=== PATIENT | male | born 1990 | race Caucasian/White ===

== ENCOUNTER → 2016-04-08 | Outpatient (CLI) | payer MEDICAID ==
[~2016-04-08] MED LIST: IOPAMIDOL (ISOVUE 370) 100 ML BTL IV ONE
--- NOTE | 2016-04-08 13:03 | CT ---
CT Angiography of the Brain Clinical Indications: History of sagittal sinus thrombosis. Follow up. R29.818 Neurological changes s trongly suggesting intracerebral aneurysm. Technique: CT angiogram of the brain was performed with the uneventful intravenous administration of 90 mL Isovue-370 contrast. Multiplanar reconstructions including 3D reconstructions performed and ev aluated on [employer] workstation in order to better evaluate the [place] vessels. Images were m anipulated by the radiologist at the computer workstation. Dose reduction techniques were utilized. Comparison: CT angiogram head dated October 11, 2015. Findings: The intracranial venous system is well opacified and widely patent. No residual clot, sten osis, or web. The anterior and posterior arterial circulation are widely patent and normal. No filling defect, aneu rysm, or vascular malformation. The right posterior communicating artery is dominant and provides dwayne clint inflowing blood to the right posterior cerebral artery. The left posterior communicating artery is hypoplastic. A left frontal ventriculostomy shunt catheter crosses the midline and courses through the genu of the corpus callosum with the tip in the right frontal horn and lateral ventricle. The right lateral vent ricle is decompressed and the septum is shifted to the right 3 to 4 mm. The third and fourth ventricl es are normal in caliber. Shunt tubing is intact. No bleed or swelling along the course of the maureen ter in the left frontal lobe. No subdural hematoma or extra-axial fluid collection. Tran-white interfaces are normal. Benign retention cysts are present in bilateral maxillary sinuses. No layering fluid. Minimal mucosal thickening is present in the ethmoid air cells. Impression: 1. Widely patent intracranial venous system. No residual sagittal sinus thrombosis or stricture. 2. Left frontal ventriculostomy shunt tube, with tip in right frontal horn, decompresses the intraven tricular system. 3. No subdural hematoma or acute intracranial process.
== END ==
LOC: FIMAGING 10:44
PROVIDERS: ATTEND Psychiatry & Neurology Neurology
DX: Z86.79 Personal history of other diseases of the circulatory system (principal)
CPT/HCPCS: Q9967

== ENCOUNTER → 2016-04-27 | Outpatient (CLI) | payer MEDICAID | LOC: BMCIMAGING 11:07 | PROVIDERS: ATTEND Internal Medicine | DX: M25.561 Pain in right knee (principal) ==

== ENCOUNTER 2016-05-07 14:41 | Emergency (ER) | payer MEDICAID ==
--- NOTE | 2016-05-07 15:20 | EDPHY ---
H & P Time Seen by Provider: 05/07/16 14:56 HPI/ROS: Chief complaint. Low blood pressure, INR check HPI. 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 He was in the ICU for a prolonged period of time. He has been on seizure medication as well as warfarin since that time. The patient had a repeat head CT with IV contrast on 04/08/2016 which showed patent intracranial venous system without any evidence of residual thrombosis. Yesterday the speech therapist who is visiting said that the patient's blood pressure was low. The patient has no symptoms including headache, visual change, mentation change per mom, chest discomfort or trouble breathing or abdominal pain no fever. His only complaint is pain in his right knee that started with physical therapy several weeks ago. He had a normal x- ray of his right knee on April 27. The mom and patient are here today for evaluation of low blood pressure and to have the INR checked. Last INR check was 2 weeks ago and was found to be 2.1 ROS Constitutional. Low blood pressure Eyes. no problems with vision ENT. no sore throat, no nasal drainage Cardiovascular. no chest pain Respiratory. no shortness of breath, no cough Abdominal. no abdominal pain, no nausea/vomiting, no diarrhea . no problems urinating MS. Right knee pain Skin. no rash Lymph. no swollen glands Neuro. 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 ENT, Mouth: Mucous membranes are moist. Respiratory: There are no retractions, lungs are clear to auscultation. Cardiovascular: Regular rate and rhythm. Gastrointestinal: Abdomen is soft and nontender, no masses, bowel sounds normal. Neurological: Awake and alert, sensory and motor exams grossly normal. Skin: Warm and dry, no rashes. Musculoskeletal: Neck is supple nontender. Extremities symmetrical, full range of motion. Psychiatric: Patient is oriented X 3, there is no agitation. Constitutional: Initial Vital Signs Temperature (C) 36.4 C 05/07/16 14:41 Heart Rate 62 05/07/16 14:41 Respiratory Rate 16 05/07/16 14:41 Blood Pressure 114/82 H 05/07/16 14:41 O2 Sat (%) 97 05/07/16 14:41 O2 Delivery Mode Room Air Allergies/Adverse Reactions: No Known Allergies Allergy (Verified 09/17/15 15:30) Home Medications: Medication Instructions Recorded ARIPiprazole [Abilify 5 mg (*)] 05/07/16 Amlodipine Besylate 05/07/16 Metoprolol Succinate 05/07/16 Sertraline HCl 05/07/16 VIMPAT 05/07/16 Warfarin Sodium [Coumadin] 05/07/16 Medical Decision Making - Diagnostics EKG Interpretation: EKG interpreted by me shows sinus bradycardia with normal interval and axis. QRS is normal there is no significant ST elevation or depression. No arrhythmia. Ventricular response is 48 Procedures: IV normal saline. 1 L of saline given ED Course/Re-evaluation: On re-evaluation patient is stable. Serial blood pressures have been performed in all are approximately 110/63. No significant hyper bow tension has been noted. The patient, his mother, and I discussed treatment plan including criteria for return and importance of follow-up and further evaluation. They expressed understanding and agreement Differential Diagnosis: Concern for non therapeutic Coumadin level as the patient has recently been treated for sagittal sinus thrombosis. The INR is on the low end but is therapeutic. He had a recent head CT which showed resolution of the thrombosis. I am not finding any reason for hypotension. The patient however does take amlodipine and metoprolol which certainly may be contributing to the low end of blood pressure and some contributing to sinus bradycardia - Data Points Laboratory Results: Laboratory Results 05/07/16 16:40 05/07/16 16:40 05/07/16 05/07/16 05/07/16 16:40 16:40 15:20 WBC 7.92 10^3/uL 10^3/uL (3.80-9.50) RBC 5.60 10^6/uL 10^6/uL (4.40-6.38) Hgb 14.9 g/dL g/dL (13.7-17.5) Hct 44.8 % % (40.0-51.0) MCV 80.0 fL L fL (81.5-99.8) MCH 26.6 pg L pg (27.9-34.1) MCHC 33.3 g/dL g/dL (32.4-36.7) RDW 14.5 % % (11.5-15.2) Plt Count 269 10^3/uL 10^3/uL (150-400) MPV 9.8 fL fL (8.7-11.7) Neut % (Auto) 68.2 % % (39.3-74.2) Lymph % (Auto) 23.9 % % (15.0-45.0) [place] % (Auto) 5.9 % % (4.5-13.0) Eos % (Auto) 1.4 % % (0.6-7.6) Baso % (Auto) 0.3 % % (0.3-1.7) Nucleat RBC Rel Count 0.0 % % (0.0-0.2) Absolute Neuts (auto) 5.41 10^3/uL 10^3/uL (1.70-6.50) Absolute Lymphs (auto) 1.89 10^3/uL 10^3/uL (1.00-3.00) Absolute Monos (auto) 0.47 10^3/uL 10^3/uL (0.30-0.80) Absolute Eos (auto) 0.11 10^3/uL 10^3/uL (0.03-0.40) Absolute Basos (auto) 0.02 10^3/uL 10^3/uL (0.02-0.10) Absolute Nucleated RBC 0.00 10^3/uL 10^3/uL (0-0.01) Immature Gran % 0.3 % % (0.0-1.1) Immature Gran # 0.02 10^3/uL 10^3/uL (0.00-0.10) PT 23.6 SEC H SEC (12.0-15.0) INR 2.09 H (0.83-1.16) APTT 23.9 SEC SEC (23.0-38.0) Sodium 138 mEq/L mEq/L (134-144) Potassium 4.2 mEq/L mEq/L (3.5-5.2) Chloride 105 mEq/L mEq/L (97-110) Carbon Dioxide 23 mEq/l mEq/l (22-31) Anion Gap 10 mEq/L mEq/L (8-16) BUN 12 mg/dL mg/dL (7-23) Creatinine 0.8 mg/dL mg/dL (0.7-1.3) Estimated GFR > 60 Glucose 82 mg/dL mg/dL (70-100) Calcium 9.2 mg/dL mg/dL (8.5-10.4) Troponin I < 0.012 ng/mL ng/mL (0-0.034) Medications Given: Discontinued Medications Sodium Chloride (Ns) 1,000 mls @ 0 mls/hr IV ONCE ONE PRN Reason: Wide Open Stop: 05/07/16 15:31 Last Admin: 05/07/16 15:41 Dose: 1,000 mls Departure - Departure Disposition: Home, Routine, Self-Care Clinical Impression: Hypotension Qualifiers: Hypotension type: hypotension due to drug Qualified Code(s): I95.2 - Hypotension due to drugs Condition: Good Instructions: Warfarin (By mouth) Additional Instructions: Continue regular medication. Some of the medications that you are taking including metoprolol and amlodipine can lower blood pressure and slow heart rate. Please see her physician for further discussion about continuing use of these medications. Return for any worsening symptoms or worsening low blood pressure below 90/60. Referrals: Ever Khan MD [Primary Care Provider] - 2-3 days, call for appt.
[2016-05-07] MEDS ORDERED: NS 1,000 ML IV ONE (15:30)
[2016-05-07 15:46] LABS: INR 2.09 (0.83-1.16); PROTIME(PATIENT) 23.6 SEC (12.0-15.0)
[2016-05-07 15:47] LABS: APTT 23.9 SEC (23.0-38.0)
--- NOTE | 2016-05-07 16:20 | CPEKG ---
Heart Rate: 48 RR Interval: 1250 P-R Interval: 164 QRSD Interval: 106 QT Interval: 436 QTC Interval: 390 P Jay: 19 QRS Jay: 45 T Wave Jay: 63 EKG Severity - OTHERWISE NORMAL ECG - EKG Impression: SINUS BRADYCARDIA Electronically Signed By: Jose Geiger 07-May-2016 23:27:36
[2016-05-07 16:56] LABS: % IMMATURE GRANULYOCYTES 0.3 % (0.0-1.1); ABSOLUTE IMMATURE GRANULOCYTES 0.02 10^3/uL (0.00-0.10); ADD DIFF? NO; ADD MORPH? NO; ADD SCAN? NO; ATYPICAL LYMPHOCYTE FLAG 0 (0-99); FRAGMENT RBC FLAG 0 (0-99); HEMATOCRIT 44.8 % (40.0-51.0); HEMOGLOBIN 14.9 g/dL (13.7-17.5); LEFT SHIFT FLG 0 (0-99); LIPEMIA HEMOLYSIS FLAG 80 (0-99); MEAN CELL HEMOGLOBIN 26.6 pg (27.9-34.1); MEAN CELL HEMOGLOBIN CONCENTR. 33.3 g/dL (32.4-36.7); MEAN PLATELET VOLUME 9.8 fL (8.7-11.7); PLATELET CLUMPS FLAG 20 (0-99); PLATELET COUNT 269 10^3/uL (150-400); RED CELL DISTRIBUTION WIDTH 14.5 % (11.5-15.2)
[2016-05-07 17:00] LABS: ANION GAP 10 mEq/L (8-16); CALCIUM 9.2 mg/dL (8.5-10.4); CARBON DIOXIDE 23 mEq/l (22-31); CHLORIDE 105 mEq/L (97-110); CREATININE 0.8 mg/dL (0.7-1.3); GLOMERULAR FILTRATION RATE > 60; GLUCOSE 82 mg/dL (70-100); POTASSIUM 4.2 mEq/L (3.5-5.2); SODIUM 138 mEq/L (134-144)
[2016-05-07 17:12] LABS: TROPONIN I < 0.012 ng/mL (0-0.034)
[2016-05-07 17:19] VITALS: RESP 18; TEMP 97.7
[2016-05-07 17:50] VITALS: BP 122/65; PULSE 75; O2SAT 96
== END 2016-05-07 17:46 | disposition home or self-care (01) ==
DX: I95.2 Hypotension due to drugs (principal); T45.515A Adverse effect of anticoagulants, initial encounter; Z79.01 Long term (current) use of anticoagulants

== ENCOUNTER → 2017-12-20 | Outpatient (CLI) | payer MEDICAID | LOC: FIMAGING 13:53 | PROVIDERS: ATTEND Internal Medicine | DX: Z45.41 Encounter for adjustment and management of cerebrospinal fluid drainage device (principal); J01.80 Other acute sinusitis ==

== ENCOUNTER 2018-03-25 22:17 | Emergency (ER) | payer MEDICAID ==
[2018-03-25] MEDS ORDERED: NS 1,000 ML IV ONE (22:55)
[2018-03-25] MEDS ORDERED: ONDANSETRON 4 MG/2 ML VIAL IVP ONE (23:02)
--- NOTE | 2018-03-25 23:05 | EDPHY ---
H & P Stated Complaint: VOMIT BLOOD 2PM AND 10PM, DIARRHEA X4, ON BLOOD THINNERS Time Seen by Provider: 03/25/18 22:55 HPI/ROS: HPI The patient presents with nausea, vomiting, diarrhea for the last 1 day, brought in now because of vomiting blood. The patient ate breakfast this morning and then developed diarrhea which he describes as loose and watery stools. He then had an episode of vomiting at 2:00 p.m. Which appeared somewhat bloody with streaks of red in it. He had dinner tonight and then about 30 min prior to arrival he had an episode of vomiting again of undigested food as well as bright red blood, without clots. He has not had any abdominal pain. He takes Xarelto and is had no changes in his dose recently.. REVIEW OF SYSTEMS 10 systems were reviewed and negative with the exception of the elements mentioned in the history of present illness. PMHx: History of of the sagittal sinus thrombosis in 2016, currently on Xarelto Soc Hx: Here with his mother PHYSICAL General Appearance: Alert, no distress Eyes: Pupils equal and round no pallor or injection ENT, Mouth: Mucous membranes moist Respiratory: There are no retractions, lungs are clear to auscultation Cardiovascular: Regular rate and rhythm Gastrointestinal: Abdomen is soft and non-tender, no masses, bowel sounds normal Neurological: A&O, moves all extremities Skin: Warm and dry, no rashes Musculoskeletal: Neck is supple non tender Extremities: symmetrical, full range of motion Psychiatric: Patient is oriented X 3, there is no agitation Source: Patient Exam Limitations: No limitations - Personal History Current Tetanus/Diphtheria Vaccine: Yes - Medical/Surgical History Hx Asthma: No Hx Chronic Respiratory Disease: No Hx Diabetes: No Hx Cardiac Disease: No Hx Renal Disease: No Hx Cirrhosis: No Hx Alcoholism: No Hx HIV/AIDS: No Hx Splenectomy or Spleen Trauma: No Other PMH: Bipolar , LOW HR, BRAIN INJ- 10/2015 [facility] SURGERY, VENTRICULAR SHUNT, VENOUS SINUS THROMBOSIS BRAIN - Social History Smoking Status: Never smoked Constitutional: Initial Vital Signs Temperature (C) 36.9 C 03/25/18 22:26 Heart Rate 92 03/25/18 22:26 Respiratory Rate 18 03/25/18 22:26 Blood Pressure 119/87 H 03/25/18 22:26 O2 Sat (%) 94 03/25/18 22:26 O2 Delivery Mode Room Air Allergies/Adverse Reactions: No Known Allergies Allergy (Verified 03/25/18 22:23) Home Medications: Medication Instructions Recorded ARIPiprazole [Abilify 5 mg (*)] 05/07/16 Sertraline HCl 05/07/16 Xarelto 03/25/18 Ondansetron Odt [Zofran Odt 4 mg 4 mg PO Q4 PRN #10 tab 03/26/18 (*)] Medical Decision Making Differential Diagnosis: 27-year-old male with history of sagittal sinus thrombosis on Xarelto presents from home with nausea, bloody vomiting, diarrhea for the last 1 day. Here, his vital signs are normal. His abdominal exam is benign. Differential diagnosis includes Kamila-Link tear, peptic ulcer disease, gastroenteritis, enterocolitis. Plan for IV fluids, antiemetics, basic labs in observation in the emergency department. Patient had labs checked which were relatively unremarkable with normal hemoglobin and PT PTT testing. He felt better after receiving the above treatments. He had no ongoing vomiting. We observed him for about 2 hr. I offered him further observation, however he would like to go home. I suspect a viral gastroenteritis with likely Kamila-Link tear. Plan for treatment for symptoms with Zofran and Imodium. I have discussed return precautions. - Data Points Laboratory Results: Laboratory Results 03/25/18 23:10 03/25/18 23:10 03/25/18 03/25/18 03/25/18 23:10 23:10 23:10 WBC 12.24 10^3/uL H 10^3/uL (3.80-9.50) RBC 6.30 10^6/uL 10^6/uL (4.40-6.38) Hgb 17.5 g/dL g/dL (13.7-17.5) Hct 50.5 % % (40.0-51.0) MCV 80.2 fL L fL (81.5-99.8) MCH 27.8 pg L pg (27.9-34.1) MCHC 34.7 g/dL g/dL (32.4-36.7) RDW 12.4 % % (11.5-15.2) Plt Count 262 10^3/uL 10^3/uL (150-400) MPV 9.3 fL fL (8.7-11.7) Neut % (Auto) 89.3 % H % (39.3-74.2) Lymph % (Auto) 6.0 % L % (15.0-45.0) [place] % (Auto) 4.1 % L % (4.5-13.0) Eos % (Auto) 0.2 % L % (0.6-7.6) Baso % (Auto) 0.2 % L % (0.3-1.7) Nucleat RBC Rel Count 0.0 % % (0.0-0.2) Absolute Neuts (auto) 10.93 10^3/uL H 10^3/uL (1.70-6.50) Absolute Lymphs (auto) 0.74 10^3/uL L 10^3/uL (1.00-3.00) Absolute Monos (auto) 0.50 10^3/uL 10^3/uL (0.30-0.80) Absolute Eos (auto) 0.02 10^3/uL L 10^3/uL (0.03-0.40) Absolute Basos (auto) 0.02 10^3/uL 10^3/uL (0.02-0.10) Absolute Nucleated RBC 0.00 10^3/uL 10^3/uL (0-0.01) Immature Gran % 0.2 % % (0.0-1.1) Immature Gran # 0.03 10^3/uL 10^3/uL (0.00-0.10) PT 15.6 SEC H SEC (12.0-15.0) INR 1.22 H (0.83-1.16) APTT 23.9 SEC SEC (23.0-38.0) Sodium 140 mEq/L mEq/L (135-145) Potassium 4.1 mEq/L mEq/L (3.5-5.2) Chloride 108 mEq/L mEq/L (97-110) Carbon Dioxide 20 mEq/l L mEq/l (22-31) Anion Gap 12 mEq/L mEq/L (6-14) BUN 22 mg/dL mg/dL (7-23) Creatinine 1.0 mg/dL mg/dL (0.7-1.3) Estimated GFR > 60 Glucose 126 mg/dL H mg/dL (70-100) Calcium 10.4 mg/dL mg/dL (8.5-10.4) Total Bilirubin 0.7 mg/dL mg/dL (0.1-1.4) AST 19 IU/L IU/L (17-59) ALT 22 IU/L IU/L (21-72) Alkaline Phosphatase 84 IU/L IU/L (38-126) Total Protein 8.5 g/dL H g/dL (6.3-8.2) Albumin 5.3 g/dL H g/dL (3.5-5.0) Medications Given: Discontinued Medications Sodium Chloride (Ns) 1,000 mls @ 0 mls/hr IV EDNOW ONE; Wide Open PRN Reason: Protocol Stop: 03/25/18 22:56 Last Admin: 03/25/18 23:10 Dose: 1,000 mls Ondansetron HCl (Zofran) 4 mg IVP EDNOW ONE Stop: 03/25/18 23:03 Last Admin: 03/25/18 23:17 Dose: 4 mg Departure - Departure Disposition: Home, Routine, Self-Care Clinical Impression: Anticoagulant long-term use Hematemesis Qualifiers: Nausea presence: with nausea Qualified Code(s): K92.0 - Hematemesis Diarrhea Qualifiers: Diarrhea type: unspecified type Qualified Code(s): R19.7 - Diarrhea, unspecified Condition: Good Instructions: Dehydration (ED), Acute Nausea and Vomiting (ED) Additional Instructions: I recommend you use the Zofran and Imodium as needed for your symptoms. Please return to the ER if your worse in any way. If you have any vomiting of blood you should come back to the ER. Referrals: Ever Khan MD [Primary Care Provider] - As per Instructions Prescriptions: Ondansetron Odt [Zofran Odt 4 mg (*)] 4 mg PO Q4 PRN #10 tab PRN Reason: Nausea/Vomiting, Can'T Take Po
[2018-03-25 23:26] LABS: PLATELET COUNT 262 10^3/uL (150-400)
[2018-03-25 23:34] LABS: INR 1.22 (0.83-1.16); PROTIME(PATIENT) 15.6 SEC (12.0-15.0)
[2018-03-25 23:53] VITALS: BP 136/85
[2018-03-26] MEDS ORDERED: LOPERAMIDE HCL 2 MG CAP PO ONE (00:31)
[2018-03-26] MEDS ORDERED: ONDANSETRON 4MG PREPACK#2 BTL TAKEHOME ONE (00:31)
== END 2018-03-26 00:45 | disposition home or self-care (01) ==
DX: K92.0 Hematemesis (principal); R19.7 Diarrhea, unspecified; E86.0 Dehydration; Z79.01 Long term (current) use of anticoagulants
CPT/HCPCS: 96374; J2405